=== PATIENT | female | born 2000 | race Caucasian/White ===

== ENCOUNTER 2022-01-16 19:09 | Emergency (ER) | payer MEDICAID ==
[~2022-01-16] VITALS: Ht 154.9 cm; Wt 48.5 kg
[2022-01-16 19:21] VITALS: BP 101/60
--- NOTE | 2022-01-16 21:26 | NUR ---
PT AMBULATORY TO BED 12
[2022-01-16] MEDS ORDERED: NAPR-54 PO (21:57)
[2022-01-16] MEDS ORDERED: CEPH-588 PO (21:59)
[2022-01-16] MEDS ORDERED: PYR100 PO (21:59)
--- NOTE | 2022-01-16 22:16 | NUR ---
Patient discharged with v/s stable. Written and verbal after care instructions given and explained. Patient alert, oriented and verbalized understanding of instructions. Ambulatory with steady gait. All questions addressed prior to discharge. ID band removed. Patient advised to follow up with PMD. Rx of cephalexin and phenazopyridine given. Patient educated on indication of medication including possible reaction and side effects. Opportunity to ask questions provided and answered.
[2022-01-16 22:17] VITALS: BP 110/75
== END 2022-01-16 22:16 | disposition home or self-care (01) ==
LOC: MED 19:09
DX: N39.0 Urinary tract infection, site not specified (principal); Z91.013 Allergy to seafood; Z79.899 Other long term (current) drug therapy
CPT/HCPCS: 81002; 81025; 87086; 99283